=== PATIENT | female | born 1940 | race Caucasian/White ===

== ENCOUNTER → 2017-02-15 | Outpatient (CLI) | payer OTHER, BC ==
[~2017-02-15] MED LIST: GADOBUTROL 10 ML VIAL IVP ONE
== END ==
LOC: FIMAGING 06:56
PROVIDERS: ATTEND Radiology Diagnostic Radiology
DX: N65.0 Deformity of reconstructed breast (principal); Z85.3 Personal history of malignant neoplasm of breast; Z80.3 Family history of malignant neoplasm of breast; Z90.13 Acquired absence of bilateral breasts and nipples
CPT/HCPCS: 0159T; A9585; C8908

== ENCOUNTER 2017-04-18 06:45 | Observation (INO) | payer OTHER, BC ==
[2017-04-18] MEDS ORDERED: LIDOCAINE 1% 2 ML INJ ID PRN (07:19)
[2017-04-18] MEDS ORDERED: LR 1,000 ML IV ONE (07:19)
[2017-04-18 07:49] LABS: % IMMATURE GRANULYOCYTES 0.2 % (0.0-1.1); ABSOLUTE IMMATURE GRANULOCYTES 0.01 10^3/uL (0.00-0.10); ADD DIFF? NO; ADD MORPH? NO; ADD SCAN? NO; ATYPICAL LYMPHOCYTE FLAG 0 (0-99); FRAGMENT RBC FLAG 0 (0-99); HEMATOCRIT 40.9 % (38.0-47.0); HEMOGLOBIN 13.7 g/dL (12.6-16.3); LEFT SHIFT FLG 0 (0-99); LIPEMIA HEMOLYSIS FLAG 80 (0-99); MEAN CELL HEMOGLOBIN 29.8 pg (27.9-34.1); MEAN CELL HEMOGLOBIN CONCENTR. 33.5 g/dL (32.4-36.7); MEAN CELL VOLUME 89.1 fL (81.5-99.8); MEAN PLATELET VOLUME 9.7 fL (8.7-11.7); PLATELET CLUMPS FLAG 0 (0-99); PLATELET COUNT 214 10^3/uL (150-400); RED BLOOD CELL COUNT 4.59 10^6/uL (4.18-5.33); RED CELL DISTRIBUTION WIDTH 13.2 % (11.5-15.2)
[2017-04-18] MEDS ORDERED: ceFAZolin 1 GM/5 ML SYR ONE (07:50)
[2017-04-18] MEDS ORDERED: GENTAMICIN SULFATE 80 MG/2 ML VIAL ONE (07:50)
[2017-04-18] MEDS ORDERED: BACITRACIN 50,000 UNITS/10 ML SYR IRR ONE (07:50)
[2017-04-18] MEDS ORDERED: BUPIVACAINE 0.25% 30 ML SDV ONE ×2 (07:50→10:26)
[2017-04-18] MEDS ORDERED: LIDOCAINE 1% 300 MG/30 ML SDV ONE (07:50)
--- NOTE | 2017-04-18 08:26 | PDHPUP ---
History & Physical Update H&P update statement: This history and physical update is based on an assessment of the patient which was completed after admission or registration (within 24 hours), but prior to the surgery/procedure.
[2017-04-18] MEDS ORDERED: fentaNYL 100 MCG/2 ML INJ ONE ×3 (08:35→11:27)
[2017-04-18] MEDS ORDERED: PROPOFOL 200 MG/20 ML VIAL ONE (08:35)
[2017-04-18] MEDS ORDERED: KETOROLAC 30 MG/1 ML SDV ONE (08:36)
[2017-04-18] MEDS ORDERED: ONDANSETRON 4 MG/2 ML VIAL ONE ×2 (08:36→11:26)
[2017-04-18] MEDS ORDERED: DEXAMETHASONE 4 MG/ML VIAL ONE (08:36)
[2017-04-18] MEDS ORDERED: ROCURONIUM 100 MG/10 ML VIAL ONE (08:36)
[2017-04-18] MEDS ORDERED: LIDOCAINE 2% 5 ML SDV ONE (08:36)
[2017-04-18] MEDS ORDERED: SUGAMMADEX SODIUM 200 MG/2 ML VIAL IVP ONE (08:36)
--- NOTE | 2017-04-18 08:42 | PDANEPAE ---
ANE History of Present Illness h/o breast ca ANE Past Medical History - Cardiovascular History Hx Hypertension: Yes Hx Arrhythmias: No Hx Chest Pain: No Hx Coronary Artery / Peripheral Vascular Disease: Yes Hx CHF / Valvular Disease: No Hx Palpitations: No Cardiovascular History Comment: HEART MURMUR - Pulmonary History Hx COPD: No Hx Asthma/Reactive Airway Disease: No Hx Recent Upper Respiratory Infection: No Hx Oxygen in Use at Home: No Hx Sleep Apnea: No Sleep Apnea Screening Result - Last Documented: Negative - Neurologic History Hx Cerebrovascular Accident: No Hx Seizures: No Hx Dementia: No - Endocrine History Hx Diabetes: No Endocrine History Comment: HYPOTHYROID - Renal History Hx Renal Disorders: No - Liver History Hx Hepatic Disorders: No - Neurological & Psychiatric Hx Hx Neurological and Psychiatric Disorders: No - Cancer History Hx Cancer: Yes Cancer History Comment: BREAST - Congenital Disorder History Hx Congenital Disorders: No - GI History Hx Gastrointestinal Disorders: Yes Gastrointestinal History Comment: GERD - Other Health History Other Health History: MACULAR DEGENERATION. OSTEOARTHRITIS - Surgical History Prior Surgeries: RT WRIST GANGLION CYST AND CARPAL TUNNEL 2014. AFUA CATARACT. OS GLAUCOMA SURG. LT VARICOSE VEIN. MICRODISCECTOMY. AFUA AUGMENTATION. REMVL LYMPH NODE. TONSILLECTOMY. LT BREAST MASTECTOMY WITH LYMPH NODE REMVL 1981. RT BREAST 1985 ANE Review of Systems Review of systems is: negative - Exercise capacity METS (RN): 4 METS ANE Patient History - Allergies Allergies/Adverse Reactions: clonazepam [From Klonopin] Allergy (Verified 04/03/17 11:25) peanut Allergy (Verified 04/03/17 11:25) procaine [From Novocain] Allergy (Verified 04/03/17 11:24) - Home Medications Home medications: home medication list seen and reviewed Home Medications: Cholecalciferol Vit D3 [Vitamin D3 2000 units tab (OTC)] 2,000 units PO DAILY [Last Taken 04/11/17] Herbals/Supplements -Info Only 1 ea PO DAILY 03/30/17 [Last Taken 04/11/17] Levothyroxine [Synthroid 88 mcg (*)] 88 mcg PO DAILY06 03/30/17 [Last Taken 04:00] Lisinopril [Zestril 20 mg (*)] 20 mg PO DAILY 03/30/17 [Last Taken 04/18/17 06: 00] Multivitamins [Multivitamin (*)] 1 each PO DAILY 03/30/17 [Last Taken 04/11/17] Omeprazole [Prilosec 20 mg] 20 mg PO DAILY 03/30/17 [Last Taken 04/18/17 05:30] Rosuvastatin Calcium [Crestor 20mg (*)] 20 mg PO DAILY 03/30/17 [Last Taken 20:00] Vitamin B Complex [B Complex] 1 each PO DAILY 03/30/17 [Last Taken 04/11/17] diphenhydrAMINE [Benadryl 25 MG (*)] 25 mg PO DAILY PRN 04/17/17 [Last Taken 22:00] - NPO status NPO Since - Liquids (Date): 04/17/17 NPO Since - Liquids (Time): 22:00 NPO Since - Solids (Date): 04/17/17 NPO Since - Solids (Time): 22:00 - Smoking Hx Smoking Status: Former smoker ANE Labs/Vital Signs - Labs Result Diagrams: 04/18/17 07:40 - Vital Signs Blood Pressure: 160/78 Heart Rate: 83 Respiratory Rate: 16 O2 Sat (%): 96 Height: 157.48 cm Weight: 65.771 kg ANE Physical Exam - Airway Neck exam: FROM Mallampati Score: Class 1 Mouth exam: normal dental/mouth exam - Pulmonary Pulmonary: no respiratory distress - Cardiovascular Cardiovascular: regular rate and rhythym - ASA Status ASA Status: III ANE Anesthesia Plan Anesthesia Plan: general endotracheal anesthesia
[2017-04-18] MEDS ORDERED: HYDROmorphONE/DILAUDID 2 MG TAB PO PRN (08:45)
[2017-04-18] MEDS ORDERED: PROMETHAZINE HCL 25 MG/ML INJ IVP PRN (08:45)
[2017-04-18] MEDS ORDERED: HYDROCODONE/APAP 5/325 TAB PO PRN (08:45)
[2017-04-18] MEDS ORDERED: ONDANSETRON DISINTEGRATING 4 MG TAB PO PRN (08:45)
[2017-04-18] MEDS ORDERED: ceFAZolin 1 GM VIAL ONE ×2 (08:56)
[2017-04-18] MEDS ORDERED: LR 1,000 ML IV SCH (09:00)
[2017-04-18] MEDS ORDERED: HYDROmorphONE/DILAUDID 2 MG/ML INJ ONE (10:06)
[2017-04-18] MEDS ORDERED: NALOXONE HCL 0.4 MG/ML INJ IVP PRN (10:37)
[2017-04-18] MEDS ORDERED: LABETALOL HCL 50 MG/10 ML SYR IVP PRN (10:37)
[2017-04-18] MEDS ORDERED: HYDROmorphONE/DILAUDID 1 MG/ML SYR IVP PRN (10:37)
[2017-04-18] MEDS ORDERED: OXYCODONE/APAP 5/325 TAB PO PRN (10:37)
[2017-04-18] MEDS ORDERED: ONDANSETRON 4 MG/2 ML VIAL IVP PRN (10:37)
[2017-04-18] MEDS ORDERED: LR 500 ML IV PRN (10:37)
[2017-04-18] MEDS ORDERED: ALBUTEROL 3 ML DEYVIAL IH PRN (10:37)
[2017-04-18] MEDS ORDERED: ACETAMINOPHEN 500 MG TAB PO PRN (10:37)
[2017-04-18] MEDS ORDERED: BACITRACIN ZINC 14.2 GM OINTTUBE TP ONE (11:00)
[2017-04-18] MEDS ORDERED: PROMETHAZINE HCL 25 MG/ML INJ ONE (11:26)
[2017-04-18] MEDS: fentaNYL 100 MCG/2 ML INJ IVP PRN ×2 (11:30→11:57)
--- NOTE | 2017-04-18 13:03 | POSTANESTH ---
Post Anesthetic Evaluation Cardiovascular Status: Normal, Stable Respiratory Status: Normal, Stable Level of Consciousness/Mental Status: Can Participate in Eval Pain Control: Adequate, Prn Tx Ordered Nausea/Vomiting Control: Adequate, Prn Tx Ordered Complications Possibly Related to Anesthesia: None Noted
--- NOTE | 2017-04-18 13:22 | GOP ---
[f rep st] OPERATIVE REPORT DATE OF OPERATION: 04/18/2017 SURGEON: Km Street MD [employer] HELPER: Wisam Ramirez CST, by surgeon request due to the complexity of the procedure, need for a skilled surgical instrument technician. ANESTHESIA: General. ANESTHESIOLOGIST: . 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 PROCEDURE PERFORMED: Extensive capsulectomy with AlloDerm and implant replacement bilaterally utilizing 405 cc smooth round silicone gel implants, SRM by Pranav. LOCATION: [facility]. FINDINGS: INDICATIONS: The patient is a 76-year-old female with a complicated past history of multiple breast procedures. The patient had bilateral mastectomies in the distant past, along with several reconstructions with silicone gel implants. 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 Right side was significantly larger than the left side. She was admitted for bilateral capsulectomy with AlloDerm and implant reconstruction. After preoperative consultation, obtaining informed consent, the operative procedure was scheduled. DESCRIPTION OF PROCEDURE: The patient was marked in the sitting position prior to entering the operating room. Procedures were rediscussed and questions were answered. The patient voiced understanding throughout. The patient was taken to the operating room, successfully anesthetized under general anesthesia in the supine position, followed by a local infiltration and sterile prep and drape of the entire chest. Inframammary incision approach was elected due to the anatomy present. This incision was cut beginning on the right side. Dissection was carried down to the scar capsule around the breast implant, which was thickened and indurated. Upon opening the capsule, approximately 400 cc of old blood was noted around the implant in the capsule with significant staining, thickening, and calcifications. The silicone gel implant was removed. It was intact and marked at 550 mL volume. It took a significant amount of time to remove all of the old dried blood within the capsule. This was irrigated on numerous occasions with saline solution. The particles were picked from the pocket. A partial inferior capsulectomy was then performed up to the leading edge of the pectoralis muscle. A peripheral capsulotomy was performed as well. This tissue was cultured and also sent for pathologic evaluation. On the left side, a similar inframammary approach was performed, removing the inferior capsule and removing a 550 cc silicone gel implant with moderate silicone gel bleed. Wide peripheral capsulotomy was performed medially and superiorly. The pocket was copiously irrigated with saline solution followed by triple antibiotic solution followed by instillation of Marcaine solution. Contour medium AlloDerm acellular dermal graft was then sutured to the leading edge of the pectoralis muscle superiorly, to the inframammary fold inferiorly with interrupted 2-0 Vicryl sutures. A 4-5 smooth round silicone gel implant was then placed after placement of a 15-Turkish round drain between the subcutaneous layer and the AlloDerm graft. Final closure of the pocket with interrupted 2-0 Vicryl sutures. Incision was closed with an interrupted and running layered suture and skin simba. On the right side, further hemostasis was assured, and after numerous irrigations with both saline and a triple antibiotic solution , the pocket appeared to be clean enough to allow suturing of an AlloDerm ADM graft and placement of an implant. This was performed with a Contour medium AlloDerm ADM, which was sutured to the leading edge of the pectoralis major muscle and the capsule superiorly. After instillation of triple antibiotic solution and Marcaine solution, a 405 SRM smooth round silicone gel implant was placed. The inferior AlloDerm was sutured in place to the inframammary fold with multiple interrupted 2-0 Vicryl sutures. The skin was closed after placement of a 15-Turkish drain between the subcutaneous layer and the AlloDerm graft. Skin simba completed the closure. A light compressive dressing was applied. Estimated blood loss was approximately 50 to 60 cc. The patient tolerated the procedure well and was awakened in the operating room , taken to the recovery room in apparent satisfactory condition. /[id number]/MODL MTDD
[2017-04-19] MEDS ORDERED: LEVOTHYROXINE 88 MCG TAB PO SCH (06:00)
[2017-04-19] MEDS ORDERED: CEPHALEXIN 250 MG CAP PO SCH (06:00)
--- NOTE | 2017-04-19 07:17 | SOAPPROG ---
SOAP Progress Note Assessment/Plan: Assessment: Plan: 04/19/17 07:16 sat po course. home with inst. Subjective: good pain control. amb, roel po well. Objective: Vital Signs Temp Pulse Resp BP Pulse Ox 36.6 C 64 16 119/64 95 04/19/17 04:00 04/19/17 04:00 04/19/17 04:00 04/19/17 04:00 04/19/17 04:00 Microbiology 04/18/17 09:30 Gram Stain - Final Breast - Eswab Laboratory Results 04/18/17 07:40 04/18/17 04/19/17 04/20/17 05:59 05:59 05:59 Intake Total 1950 Output Total 250 Balance 1700 VSS. I&O appropriate. Serosang output, greater R than L. Dressings dry. Breasts soft and mobile implants. - Time Spent With Patient Time Spent With Patient: 10" - Pending Discharge Pending Discharge Within 24 Hours: Yes Pending Discharge Date: 04/20/17 Pending Discharge Time: 11:00
[2017-04-19 07:40] VITALS: BP 134/61; PULSE 77; RESP 20; TEMP 98; O2SAT 93
[2017-04-19] MEDS ORDERED: NON-FORMULARY NEW DRUG (Omeprazole [Prilosec 20 Mg] 20 MG) PO SCH (09:00)
[2017-04-19] MEDS ORDERED: ROSUVASTATIN CALCIUM 20 MG TAB PO SCH (09:00)
[2017-04-19] MEDS ORDERED: LISINOPRIL 20 MG TAB PO SCH (09:00)
[2017-04-19] MEDS ORDERED: PANTOPRAZOLE SODIUM 40 MG TAB PO SCH (09:00)
--- NOTE | 2017-04-19 10:15 | GDS ---
[f rep st] DISCHARGE SUMMARY ADMISSION DIAGNOSIS: Absence bilateral breasts with severe bilateral capsular scar contracture. OPERATIVE PROCEDURE: On the day of admission, 04/18, bilateral capsulectomy with implant AlloDerm b reast reconstruction. CLINICAL SUMMARY: The patient is a 76-year-old female with severe bilateral capsular scar contractu re of reconstructive breast implants, placed approximately 20 years ago. She had her mastectomies i n the remote past. She was admitted for capsulectomy with implant replacement and AlloDerm acellula r dermal graft. Preoperative evaluation was unremarkable. Patient underwent the described operative procedure on the day of admission. Findings included sign ificant amount of old blood around the right reconstructive implant, which was removed. Bilateral p artial capsulectomy was performed. Reconstruction was performed with AlloDerm and cohesive smooth r ound silicone gel implants. She was drained. Her intraoperative course was unremarkable. Postoper atively she did well and was discharged on the 1st postoperative day, ambulatory, tolerating a gener al diet with wound care ambulation instructions, pulmonary toilet instructions. Patient was only ta betty Tylenol at the time of discharge. She will be followed up in the office on the . She will contact us sooner if there are any problems. /[id number]/MODL
--- NOTE | 2017-04-19 13:04 | ASDISCHSUM ---
Discharge Information Plan Status:Home with No Needs Medically Cleared to Leave: Discharge Date:04/19/2017 11:01 AM CM D/C Disposition:Home, Routine, Self-Care ADT D/C Disposition:Home, Routine, Self-Care Projected Discharge Date:04/19/2017 11:01 AM Transportation at D/C:Family Discharge Delay Reason: Follow-Up Date:04/19/2017 11:01 AM Discharge Slot: Final Diagnosis: Placement Information Patient Contact Information Contact Name:MADYSON Relationship:Erik Address: Work Phone: City: [facility] Phone: State/Zip Code: Email: Financial Information Financial Class: Primary Plan Desc:MEDICARE OUTPATIENT Primary Plan Number:[id number] Secondary Plan Desc:[employer] Secondary Plan Number:[id number] Assessment Information Intervention Information Intervention Type:*JESSE-Signed Date of Service:04/18/2017 04:20 PM Patient Type:Observation Staff Member:Rhonda Ovalle Hours: Discipline: Severity: Comment:
== END 2017-04-19 11:01 | disposition home or self-care (01) ==
LOC: F3E 06:45
PROVIDERS: ADMIT Specialist; ATTEND Specialist
DX: T85.44XA Capsular contracture of breast implant, initial encounter (principal); Z85.3 Personal history of malignant neoplasm of breast; Z96.9 Presence of functional implant, unspecified; Z90.13 Acquired absence of bilateral breasts and nipples
CPT/HCPCS: 19340; 19371; C1789; J0171; J0690; J1100; J1170; J1885; J2405; J2550; J2704; J3010; Q4116